=== PATIENT | female | born 1945 | race Caucasian/White ===

== ENCOUNTER 2016-12-15 20:21 | Emergency (ER) | payer MEDICAID ==
[~2016-12-15] VITALS: Ht 152.4 cm; Wt 96.0 kg
[~2016-12-15 20:21] MED LIST: IBUP-1542 PO
[2016-12-15 20:41] VITALS: Ht 152.4 cm; Wt 96.0 kg
[2016-12-15 21:54] LABS: ADD SCAN DIFF NO
[2016-12-15 21:59] LABS: BASOPHILS % 0.3 % (0.0-2.0); EOSINOPHILS # 0.2 10^3/ul (0.0-0.5); HEMATOCRIT 41.2 % (37.0-47.0); HEMOGLOBIN 13.7 g/dl (12.0-16.0); LYMPHOCYTES # 3.1 10^3/ul (0.8-2.9); LYMPHOCYTES % 27.4 % (15.0-51.0); MEAN CORPUSCULAR HEMOGLOBIN 30.5 pg (29.0-33.0); MEAN CORPUSCULAR HGB CONC 33.3 g/dl (32.0-37.0); MEAN CORPUSCULAR VOLUME 91.8 fl (82.0-101.0); MEAN PLATELET VOLUME 9.3 fl (7.4-10.4); MONOCYTE # 0.7 10^3/ul (0.3-0.9); MONOCYTES % 6.6 % (0.0-11.0); NEUTROPHIL # 7.2 10^3/ul (1.6-7.5); NEUTROPHILS % 63.5 % (39.0-77.0); PLATELET COUNT 299 10^3/UL (140-415); RED BLOOD COUNT 4.49 10^6/ul (4.20-5.40); RED CELL DISTRIBUTION WIDTH 13.2 % (11.5-14.5); WHITE BLOOD COUNT 11.3 10^3/ul (4.8-10.8)
--- NOTE | 2016-12-15 22:07 | RADRPT ---
PROCEDURE: XR Forearm. CLINICAL INDICATION: Pain of the left wrist after a fall. TECHNIQUE: AP and lateral views of the left forearm were obtained. COMPARISON: No. FINDINGS: There is normal mineralization and alignment. No acute fracture or osseous lesion is identified. The soft tissues are unremarkable. IMPRESSION: Unremarkable left forearm. RPTAT:AAJJ Physician Slime Date Time Electronically viewed and signed by Pop Hunt Physician on 12/15/2016 22:07 LEILANI/
--- NOTE | 2016-12-15 22:07 | RADRPT ---
PROCEDURE: XR Left Wrist. CLINICAL INDICATION: Left wrist pain after a fall. TECHNIQUE: AP, lateral, navicular and oblique views of the left wrist were performed. COMPARISON: No. FINDINGS: There is no evidence of acute fracture. No evidence of dislocation or subluxation. The bones appear well mineralized. The joint spaces are well preserved. The soft tissues are normal. IMPRESSION: Unremarkable exam of the left wrist. RPTAT:AAJJ Physician Slime Date Time Electronically viewed and signed by Physician Slime on 12/15/2016 22:06 /
--- NOTE | 2016-12-15 22:24 | RADRPT ---
PROCEDURE: XR Knee. CLINICAL INDICATION: Trauma TECHNIQUE: AP, lateral and oblique view of the right knee were obtained. COMPARISON: 08/29/2015 FINDINGS: There is normal mineralization.There is no acute fracture or dislocation.No destructive lesion is id entified. There is no joint effusion. IMPRESSION: No fracture or dislocation. RPTAT: HIKT .Gurinder Fragoso MD, MD Date Time Electronically viewed and signed by .Gurinder Fragoso MD, on 12/15/2016 22:24 .T/
--- NOTE | 2016-12-15 22:28 | RADRPT ---
PROCEDURE: CT Brain without contrast. CLINICAL INDICATION: Swelling and ecchymosis status post trauma TECHNIQUE: A CT of the brain was performed on a [employer] 64-slice CT scanner utilizing axial imaging from the skull base through the vertex without IV contrast. Multiplanar reformatted images were made. Images were reviewed on a PACS workstation. The CTDIvol is 46.11 mGy and the DLP is 6 o arron 96.22 mGycm. One of the following 3 dose reduction techniques were used: Automated exposure control; adjustment of the mA and/or kV according to patient size; or use of iterative reconstruction technique. COMPARISON: None available FINDINGS: There is no intracranial hemorrhage, mass effect, or midline shift. No extra-axial fluid collection is seen. The ventricles and sulci are age appropriate. Mild diffuse volume loss is present. Subtl e decreased attenuation is present in the bilateral subcortical white matter, bilateral centrum semi ovale and bilateral periventricular white matter compatible with mild chronic microvascular ischemic disease. The visualized scalp and calvarium are remarkable for a 8 moderate size right frontal scalp hematoma . No underlying calvarial fracture is present. The bilateral orbits are normal. The bilateral par anasal sinuses, mastoid air cells and middle ear cavities are clear. IMPRESSION: 1. No evidence of acute intracranial hemorrhage, infarcts, or acute intracranial pathology. 2. Mild chronic microvascular ischemic disease 3. Mild diffuse volume loss RPTAT: HDC .Adaligsa Danielle MD, MD Date Time Electronically viewed and signed by .Adalgisa Danielle MD, MD on 12/15/2016 22:28 .C/
--- NOTE | 2016-12-15 22:38 | RADRPT ---
PROCEDURE: CT facial bones CLINICAL INDICATION: Facial swelling and ecchymosis TECHNIQUE: A CT of the facial bones was performed on a GE 64-slice CT scanner utilizing high-resol ution axial images. Sagittal, coronal, and multiplanar reformatted images were made. Additionally, 3-D reformatted images were made. The CTDIvol is 29.42 mGy and the DLP is 519.41 mGy-cm. COMPARISON: 12/15/[address] FINDINGS: The visualized scalp demonstrates moderate size right frontal and preseptal orbital hematoma. No ev idence for underlying fractures are present. The bilateral pterygoid plates, zygomatic arches, bony toledo of the orbit and the toledo of the paranasal sinuses are all intact. The mandible is intact. The bilateral nasal bones are intact. The soft tissues of the orbits and demonstrate the moderate right preseptal hematoma. The bilateral globes and lenses are intact. The post septal spaces, intraconal and extraconal spaces are symmetr ic bilaterally and are normal. The imaged portions of the brain are normal. Mild vascular calcifications are present of the intrac ranial internal carotid arteries. The paranasal sinuses demonstrate no evidence for acute air fluid levels. The bilateral ostiomeatal complexes are intact. 4 mm nasal septal deviation convex to the right is present. IMPRESSION: 1. No acute fractures or dislocations present. 2. Moderate right preseptal orbital and frontal scalp hematoma. 3. Mild atherosclerotic vascular disease RPTAT: HDC .Adalgisa Danielle MD, MD Date Time Electronically viewed and signed by .Adalgisa Danielle MD, MD on 12/15/2016 22:38 .C/
[2016-12-15] MEDS ORDERED: ACET500C5 PO (23:01)
--- NOTE | 2016-12-15 23:08 | ERD ---
ER Documentation Chief Complaint Date/Time DATE: 12/15/16 TIME: 23:02 Chief Complaint ground level fall at 1130 am. c/o swelling right eyelid/forehead. no ko HPI Patient is a 71-year-old female with a past medical history of hypertension, diabetes who presents to the emergency department after a ground-level fall today. Patient states that she was walking in the grocery store parking out when she tripped and fall on her right knee. Patient reports hitting head on ground. Patient reports swelling and bruising to her right eyelid and forehead. She denies any nausea, vomiting, loss of consciousness, excessive sleepiness or confusion. Patient denies any blood thinner use. She is able to tolerate fluids. Patient does report some mild head pain. She denies any sudden onset. She states that her current pain level is a 5 out of 10. Patient states she took Tylenol approximately 3 hours ago. Patient denies any back pain, neck pain or neck stiffness. Patient is reporting pain to her left wrist. Patient works normal range of motion. Patient is also reporting pain to her right knee. Patient reports some ecchymosis to anterior knee. Patient reports normal range of motion of knee. Patient is able to ambulate without any difficulty. Patient denies any previous lower and upper extremity injuries. ROS All systems reviewed and are negative except as per history of present illness. Medications Home Meds Active Scripts Acetaminophen* (Tylophen*) 500 Mg Capsule, 1 CAP PO Q6H Y for PAIN AND OR ELEVATED TEMP, #20 CAP Prov:MINERVA ALLEN PA-C 12/15/16 Ibuprofen* (Motrin*) 600 Mg Tab, 600 MG PO Q6H Y for PAIN, #20 TAB Prov:MELA GOODEN MD 08/29/15 Allergies Allergies: Coded Allergies: No Known Drug Allergies (Verified Allergy, Unknown, 12/15/16) PMhx/Soc History of Surgery: Yes (hussein) Anesthesia Reaction: No Hx Neurological Disorder: No Hx Respiratory Disorders: No Hx Cardiac Disorders: Yes (htn) Hx Psychiatric Problems: No Hx Miscellaneous Medical Probl: Yes (dm) Hx Alcohol Use: No Hx Substance Use: No Hx Tobacco Use: No FmHx Family History: No diabetes Physical Exam Vitals Vital Signs Date Time Temp Pulse Resp B/P Pulse Ox O2 Delivery O2 Flow Rate FiO2 12/15/16 23:31 69 20 170/90 95 Room Air 12/15/16 20:41 98.1 66 20 174/90 96 Physical Exam GENERAL: Well-developed, well-nourished female. Appears in no acute distress. HEAD: Normocephalic. +Forehead ecchymosis and swelling to right frontal region. No mastoid process ecchymosis or tenderness bilaterally. EYE: Right upper eyelid with significant swelling and ecchymosis. Due to swelling, right upper eyelid is closed. Able to be opened by examiner. Some swelling and ecchymosis of the left upper eyelid noted. Left eyelid open. No signs of globe rupture bilaterally. Pupils equal, round, and reactive to light bilaterally. EOMs intact bilateral. No conjunctival erythema bilaterally. ENT: External ear without any masses or tenderness. Auditory canals clear bilaterally. No hemotypanium bilaterally. Nasal bridge slightly tender to palpation. Nasal mucosa pink with no discharge. No septal hematoma. Oropharynx is pink without any tonsillar erythema or exudates. No blood noted in posterior pharynx. No uvula deviation. No kissing tonsils. NECK: Supple. No cervical spine midline tenderness. Bilateral clavicles nontender to palpation. No obvious deformity of bilateral clavicles. LUNG: Clear to auscultation bilaterally. No rhonchi, wheezing, rales or coarse breath sounds. HEART: Regular rate and rhythm. No murmurs, rubs or gallops. ABDOMEN: Soft, nontender, and nondistended. Positive bowel sounds in all four quadrants. No rebound tenderness, no guarding. (-) McBurney's point tenderness. No CVA tenderness. BACK: No midline tenderness. EXTREMITES: Equal pulses bilaterally. No peripheral clubbing, cyanosis or edema. No unilateral leg swelling. NEUROLOGIC: Alert and oriented x3, cooperative. Mood and affect appropriate to situation. Cranial nerves II through XII are grossly intact. Normal speech. Motor exam: 5/5 strength in upper and lower extremities. Sensory exam: Sensation intact to light touch on all four extremities. No dysmetria on finger- to-nose test. Steady gait. No pronator drift. SKIN: Normal color. Warm and dry. Superficial abrasion noted to nasal bridge. No active bleeding. LEFT ARM: No deformity, erythema or swelling. Some ecchymosis noted to the volar aspect of the forearm. Skin intact. Full ROM shoulder, elbow, wrists, fingers.. Non-tender to palpation of shoulder, elbow. Tender palpation of the mid forearm. Sensation intact to light touch. Neurovascularly intact. (Able to give thumbs up, make an ok sign, cross digits 2 and 3, thumb to pinky opposition. 2+ RP.) No snuffbox tenderness. RIGHT KNEE: No deformity, erythema or swelling. +Ecchymosis of anterior knee. Superficial abrasions noted to anterior knee. Full ROM of knee and ankle. No crepitus. Tender to palpation anterior knee. Non-tender to palpation of femur, tibia, fibula, ankle. Sensation intact to light touch. Neurovascularly intact. ( Able to plantarflex, dorsiflex, gaston foot, invert foot, raise big toe.) 2+ DP and DT pulses. Result Diagram: 12/15/162144 Results 24 hrs Laboratory Tests Test 12/15/16 21:45 Basophils # 0.010^3/ul Basophils % 0.3% Eosinophils # 0.210^3/ul Eosinophils % 2.0% Hematocrit 41.2% Hemoglobin 13.7g/dl Lymphocytes # 3.110^3/ul Lymphocytes % 27.4% Mean Corpuscular Hemoglobin 30.5pg Mean Corpuscular Hemoglobin Concent 33.3g/dl Mean Corpuscular Volume 91.8fl Mean Platelet Volume 9.3fl Monocytes # 0.710^3/ul Monocytes % 6.6% Neutrophils # 7.210^3/ul Neutrophils % 63.5% Nucleated Red Blood Cells # 0.010^3/ul Nucleated Red Blood Cells % 0.0/100WBC Platelet Count 17314^3/UL Red Blood Count 4.4910^6/ul Red Cell Distribution Width 13.2% White Blood Count 11.310^3/ul Procedures/MDM ED COURSE: The patient was stable throughout ED course. I kept the patient and/or family informed of laboratory and diagnostic imaging results throughout the ED course. DIAGNOSTIC IMAGING: Read by radiologist. DIAGNOSTIC IMAGING REPORT Patient: MANOHAR OBRIEN : 1945 Age: 71 Sex: F MR #: [id number] DOS: 12/15/162123 Ordering MD: MINERVA ALLEN PA-C Location: [facility] Room/Bed: PROCEDURE: CT Brain without contrast. CLINICAL INDICATION: Swelling and ecchymosis status post trauma TECHNIQUE: A CT of the brain was performed on a GE [employer] 64-slice CT scanner utilizing axial imaging from the skull base through the vertex without IV contrast. Multiplanar reformatted images were made. Images were reviewed on a PACS workstation. The CTDIvol is 46.11 mGy and the DLP is 6 over 96.22 mGycm. One of the following 3 dose reduction techniques were used: Automated exposure control; adjustment of the mA and/or kV according to patient size; or use of iterative reconstruction technique. COMPARISON: None available FINDINGS: There is no intracranial hemorrhage, mass effect, or midline shift. No extra- axial fluid collection is seen. The ventricles and sulci are age appropriate. Mild diffuse volume loss is present. Subtle decreased attenuation is present in the bilateral subcortical white matter, bilateral centrum semiovale and bilateral periventricular white matter compatible with mild chronic microvascular ischemic disease. The visualized scalp and calvarium are remarkable for a 8 moderate size right frontal scalp hematoma. No underlying calvarial fracture is present. The bilateral orbits are normal. The bilateral paranasal sinuses, mastoid air cells and middle ear cavities are clear. IMPRESSION: 1. No evidence of acute intracranial hemorrhage, infarcts, or acute intracranial pathology. 2. Mild chronic microvascular ischemic disease 3. Mild diffuse volume loss RPTAT: HDC .Adalgisa Danielle MD, MD Date Time Electronically viewed and signed by .Adalgisa Danielle MD, MD on 12/15/2016 22: 28 .C/ CC: MINERVA ALLEN PA-C DIAGNOSTIC IMAGING REPORT Patient: MANOHAR OBRIEN : 1945 Age: 71 Sex: F MR #: [id number] DOS: 12/15/162123 Ordering MD: MINERVA ALLEN PA-C Location: E Room/Bed: PROCEDURE: CT facial bones CLINICAL INDICATION: Facial swelling and ecchymosis TECHNIQUE: A CT of the facial bones was performed on a GE 64-slice CT scanner utilizing high-resolution axial images. Sagittal, coronal, and multiplanar reformatted images were made. Additionally, 3-D reformatted images were made. The CTDIvol is 29.42 mGy and the DLP is 519.41 mGy-cm. COMPARISON: 12/15/[address] FINDINGS: The visualized scalp demonstrates moderate size right frontal and preseptal orbital hematoma. No evidence for underlying fractures are present. The bilateral pterygoid plates, zygomatic arches, bony toledo of the orbit and the toledo of the paranasal sinuses are all intact. The mandible is intact. The bilateral nasal bones are intact. The soft tissues of the orbits and demonstrate the moderate right preseptal hematoma. The bilateral globes and lenses are intact. The post septal spaces, intraconal and extraconal spaces are symmetric bilaterally and are normal. The imaged portions of the brain are normal. Mild vascular calcifications are present of the intracranial internal carotid arteries. The paranasal sinuses demonstrate no evidence for acute air fluid levels. The bilateral ostiomeatal complexes are intact. 4 mm nasal septal deviation convex to the right is present. IMPRESSION: 1. No acute fractures or dislocations present. 2. Moderate right preseptal orbital and frontal scalp hematoma. 3. Mild atherosclerotic vascular disease RPTAT: HDC .Adalgisa Danielle MD, Date Time Electronically viewed and signed by .Adalgisa Danielle MD, on 12/15/2016 22: 38 .C/ CC: MINERVA ALLEN PA-C DIAGNOSTIC IMAGING REPORT Patient: MANOHAR OBRIEN : 1945 Age: 71 Sex: F MR #: [id number] DOS: 12/15/162123 Ordering MD: MINERVA ALLEN PA-C Location: [facility] Room/Bed: PROCEDURE: XR Forearm. CLINICAL INDICATION: Pain of the left wrist after a fall. TECHNIQUE: AP and lateral views of the left forearm were obtained. COMPARISON: No. FINDINGS: There is normal mineralization and alignment. No acute fracture or osseous lesion is identified. The soft tissues are unremarkable. IMPRESSION: Unremarkable left forearm. RPTAT:AAJJ Physician Slime Date Time Electronically viewed and signed by Pop Hunt Physician on 12/15/2016 22:07 JM/ CC: MINERVA ALLEN PA-C DIAGNOSTIC IMAGING REPORT Patient: MANOHAR OBRIEN : 1945 Age: 71 Sex: F MR #: [id number] DOS: 12/15/162123 Ordering MD: MINERVA ALLEN PA-C Location: [facility]TE Room/Bed: PROCEDURE: XR Knee. CLINICAL INDICATION: Trauma TECHNIQUE: AP, lateral and oblique view of the right knee were obtained. COMPARISON: 08/29/2015 FINDINGS: There is normal mineralization.There is no acute fracture or dislocation.No destructive lesion is identified. There is no joint effusion. IMPRESSION: No fracture or dislocation. RPTAT: HIKT .Gurinder Fragoso MD, Date Time Electronically viewed and signed by .Gurinder Fragoso MD, on 12/15/2016 22:24 .T/ CC: MINERVA ALLEN PA-C DIAGNOSTIC IMAGING REPORT Patient: MANOHAR OBRIEN : 1945 Age: 71 Sex: F MR #: [id number] DOS: 12/15/162123 Ordering MD: MINERVA ALLEN PA-C Location: [facility]TE Room/Bed: PROCEDURE: XR Left Wrist. CLINICAL INDICATION: Left wrist pain after a fall. TECHNIQUE: AP, lateral, navicular and oblique views of the left wrist were performed. COMPARISON: No. FINDINGS: There is no evidence of acute fracture. No evidence of dislocation or subluxation. The bones appear well mineralized. The joint spaces are well preserved. The soft tissues are normal. IMPRESSION: Unremarkable exam of the left wrist. RPTAT:AAJJ Physician Slime Date Time Electronically viewed and signed by Pop Hunt Physician on 12/15/2016 22:06 JM/ CC: MINERVA ALLEN PA-C MEDICAL DECISION MAKING: This is a 71-year-old female who presents with a head injury, facial/ eyelid bruising and swelling status post ground-level fall earlier today. Patient denied blood thinner use. Vital signs were reviewed. Patient was afebrile. Patient is not hypoxic. Full neurological exam was normal. CT brain showed No evidence of acute intracranial hemorrhage, infarcts, or acute intracranial pathology. Mild chronic microvascular ischemic disease. Mild diffuse volume loss. CT facial bones showed No acute fractures or dislocations present. Moderate right preseptal orbital and frontal scalp hematoma. Mild atherosclerotic vascular disease. X-ray of the right knee was unremarkable. X- ray of the left wrist was unremarkable. X-ray of the left forearm was unremarkable. Given these findings, the patients presentation is most consistent with right preseptal orbital and frontal scalp hematoma secondary to trauma. I have a much lower clinical concern for intracranial hemorrhage, meningitis, encephalitis, temporal arteritis, benign intracranial hypertension, intracranial mass, tension headache. Low suspicion for facial fractures, skull fracture, knee dislocation, ankle dislocation, knee fracture, elbow fracture, radial fracture, ulna fracture, hand fracture. Unable to rule out any ligamentous or tendon injuries at this time. Knee pain and wrist pain most likely due to sprains vs contusions. PRESCRIPTIONS: Tylenol DISCHARGE: At this time, patient is stable for discharge and outpatient management. Strict head injury precautions were discussed with the patient. Patient was advised to return to the emergency department immediately for any new or worsening symptoms including headache, nausea, vomiting, confusion, excessive sleepiness, dizziness or loss of consciousness. I have encouraged the patient to hydrate well. Patient advised to only take Tylenol for pain. I have instructed the patient to follow-up with his/her primary care physician in 1-2 days. If symptoms persist, patient may need to see a specialist for further examinations and testing. The patient and/or family expressed understanding of and agreement with this plan. All questions were answered. Home care instructions were provided. My supervising physician, Dr. Wheeler, examined the patient with me and agrees that patient is stable for outpatient management. Patients blood pressure was elevated (>120/80) but appears stable without evidence of hypertensive emergency, hypertensive urgency or end-organ failure. I had discussion with the patient about the risks of hypertension. I have advised the patient to follow up with his/her primary care physician for outpatient monitoring and treatment for hypertension in 2-3 days. I have instructed the patient to return to the ER for any new or worsening symptoms including chest pain, shortness of breath, headache, blurred vision, confusion, nausea, vomiting or LOC. Departure Diagnosis: Primary Impression: Traumatic orbital hematoma Encounter type: initial encounter Laterality: right Qualified Code: S05.11XA - Traumatic orbital hematoma, right, initial encounter Additional Impressions: Knee sprain Encounter type: initial encounter Involved ligament of knee: unspecified ligament Laterality: right Qualified Code: S83.91XA - Sprain of right knee, unspecified ligament, initial encounter Wrist sprain Encounter type: initial encounter Laterality: left Qualified Code: S63.502A - Wrist sprain, left, initial encounter Fall from ground level Condition: Stable Patient Instructions: HEAD INJURY, No Wake-Up (Adult) Referrals: [facility] YOU HAVE RECEIVED A MEDICAL SCREENING EXAM AND THE RESULTS INDICATE THAT YOU DO NOT HAVE A CONDITION THAT REQUIRES URGENT TREATMENT IN THE EMERGENCY DEPARTMENT. FURTHER EVALUATION AND TREATMENT OF YOUR CONDITION CAN WAIT UNTIL YOU ARE SEEN IN YOUR DOCTORS OFFICE WITHIN THE NEXT 1-2 DAYS. IT IS YOUR RESPONSIBILITY TO MAKE AN APPOINTMENT FOR FOLOW-UP CARE. IF YOU HAVE A PRIMARY DOCTOR --you should call your primary doctor and schedule an appointment IF YOU DO NOT HAVE A PRIMARY DOCTOR YOU CAN CALL OUR PHYSICIAN REFERRAL HOTLINE AT IF YOU CAN NOT AFFORD TO SEE A PHYSICIAN YOU CAN CHOSE FROM THE FOLLOWING [facility] [address] [facility]. [facility] [address] [facility] [facility] [address] [facility] [address] [facility] [address] [facility]. [facility] [address] [facility]. [facility] YOU HAVE RECEIVED A MEDICAL SCREENING EXAM AND THE RESULTS INDICATE THAT YOU DO NOT HAVE A CONDITION THAT REQUIRES URGENT TREATMENT IN THE EMERGENCY DEPARTMENT. FURTHER EVALUATION AND TREATMENT OF YOUR CONDITION CAN WAIT UNTIL YOU ARE SEEN IN YOUR DOCTORS OFFICE WITHIN THE NEXT 1-2 DAYS. IT IS YOUR RESPONSIBILITY TO MAKE AN APPOINTMENT FOR FOLOW-UP CARE. IF YOU HAVE A PRIMARY DOCTOR --you should call your primary doctor and schedule and appointment IF YOU DO NOT HAVE A PRIMARY DOCTOR YOU CAN CALL OUR PHYSICIAN REFERRAL HOTLINE AT . IF YOU CAN NOT AFFORD TO SEE A PHYSICIAN YOU CAN CHOSE FROM THE FOLLOWING [facility] INSTITUTIONS: [facility] [address] [place] [address] [facility] [address] [place] [address] [facility] [address] [place] [address] Additional Instructions: No dave Ibuprofen o Motrin. Solamente dave Tylenol para dolor. Regrarse por mucho dolor, nausea, vomito, sentir mal. Llame al doctor MAANA y chon osvaldo PANCHITO PARA DENTRO DE 1-2 MANN.Dgale a la secretaria que nosotros le instruimos hacer esta panchito.Avise o llame si mayes condicin se empeora antes de la panchito. Regresa aqui si peor o no mejor. MINERVA ALLEN PA-C Dec 15, 2016 23:08
[2016-12-15 23:31] VITALS: BP 170/90; PULSE 69; RESP 20
== END 2016-12-15 23:32 | disposition home or self-care (01) ==
LOC: FTE 20:21
DX: S05.11XA Contusion of eyeball and orbital tissues, right eye, initial encounter (principal); S83.91XA Sprain of unspecified site of right knee, initial encounter; S63.502A Unspecified sprain of left wrist, initial encounter; I10 Essential (primary) hypertension; E11.9 Type 2 diabetes mellitus without complications; W01.198A Fall on same level from slipping, tripping and stumbling with subsequent striking against other object, initial encounter; Y92.512 Supermarket, store or market as the place of occurrence of the external cause
CPT/HCPCS: 36415; 70450; 70486; 73090; 73110; 73562; 85025; Z7502